=== PATIENT | female | born 1970 | race Native Hawaiian/Other Pacific Islander ===

== ENCOUNTER 2016-11-21 07:27 | Outpatient (CLI) | payer OTHER ==
[~2016-11-21 07:27] MED LIST: ALPR0.2566 PO; AMOX500C85 PO; BENZONATATE200 MG PO; CELEXA20 MG PO; CIPRO500 MG PO; CYCL10TA35 PO; LEVO0.2T35 PO; LEXAPRO20 MG PO; MELO-13 PO; OMEP20CA PO; PAMELOR25 MG OR; QC IBUPROFEN200 M1 OR
== END 2016-11-21 19:06 | disposition home or self-care (01) ==
LOC: NM 07:27
DX: I10 Essential (primary) hypertension (principal)
CPT/HCPCS: A9500

== ENCOUNTER 2016-12-13 17:11 | Outpatient (CLI) | payer OTHER | END 2016-12-13 20:16 | disposition home or self-care (01) | LOC: RAD 17:11 | DX: S70.02XA Contusion of left hip, initial encounter (principal) ==

== ENCOUNTER 2018-04-01 14:56 | Outpatient (CLI) | payer OTHER | END 2018-04-01 20:26 | disposition home or self-care (01) | LOC: RAD 14:56 | DX: J20.8 Acute bronchitis due to other specified organisms (principal) ==

== ENCOUNTER 2018-12-13 10:58 | Outpatient (CLI) | payer OTHER | END 2018-12-13 22:50 | disposition home or self-care (01) | LOC: MAMMO 10:58 | DX: Z13.820 Encounter for screening for osteoporosis (principal); Z12.31 Encounter for screening mammogram for malignant neoplasm of breast ==

== ENCOUNTER 2019-09-16 16:40 | Outpatient (CLI) | payer OTHER | END 2019-09-16 19:04 | disposition home or self-care (01) | LOC: RAD 16:40 | DX: M54.17 Radiculopathy, lumbosacral region (principal) ==

== ENCOUNTER 2020-01-23 10:42 | Outpatient (CLI) | payer OTHER | END 2020-01-23 20:13 | disposition home or self-care (01) | LOC: MAMMO 10:42 | DX: Z12.31 Encounter for screening mammogram for malignant neoplasm of breast (principal) ==

== ENCOUNTER 2020-04-08 15:02 | Outpatient (CLI) | payer OTHER | END 2020-04-08 19:00 | disposition home or self-care (01) | LOC: LABW 15:02 → RAD 15:02 | DX: R07.9 Chest pain, unspecified (principal); S29.019A Strain of muscle and tendon of unspecified wall of thorax, initial encounter | CPT/HCPCS: 84484 ==

== ENCOUNTER 2020-11-16 11:42 | Outpatient (CLI) | payer OTHER ==
[~2020-11-16] VITALS: Ht 160 cm; Wt 117.9 kg
[2020-11-16 13:41] LABS: PLATELET COUNT 491 K/uL (152-353)
[2020-11-16 13:57] LABS: POTASSIUM 3.3 mmol/L (3.6-5.2)
== END 2020-11-16 15:43 | disposition home or self-care (01) ==
LOC: INF 11:42
PROVIDERS: ATTEND Family Medicine
DX: U07.1 COVID-19 (principal)
CPT/HCPCS: 80053; 82728; 85027; 85379; 86140; 96360; 96361

== ENCOUNTER → 2020-12-22 12:39 | Outpatient (CLI) | payer OTHER | END | disposition home or self-care (01) | LOC: RAD 12-20 13:00 | PROVIDERS: ATTEND Nurse Practitioner Family | DX: Z13.820 Encounter for screening for osteoporosis (principal); N95.8 Other specified menopausal and perimenopausal disorders ==

== ENCOUNTER 2022-01-26 07:41 | Outpatient (CLI) | payer OTHER | END 2022-01-26 20:37 | disposition home or self-care (01) | LOC: CT 07:41 | PROVIDERS: ATTEND Nurse Practitioner Family | DX: K42.9 Umbilical hernia without obstruction or gangrene (principal) | CPT/HCPCS: Q9963 ==

== ENCOUNTER 2022-01-30 09:21 | Outpatient (CLI) | payer OTHER | END 2022-01-30 19:04 | disposition home or self-care (01) | LOC: US 09:21 | PROVIDERS: ATTEND Nurse Practitioner Family | DX: Z30.431 Encounter for routine checking of intrauterine contraceptive device (principal) ==

== ENCOUNTER 2022-06-01 17:06 | Outpatient (CLI) | payer OTHER | END 2022-06-01 19:07 | disposition home or self-care (01) | LOC: RAD 17:06 | PROVIDERS: ATTEND Nurse Practitioner Family | DX: M25.551 Pain in right hip (principal) ==

== ENCOUNTER 2023-04-04 09:56 | Outpatient (CLI) | payer OTHER | END 2023-04-04 19:01 | disposition home or self-care (01) | LOC: MAMMO 09:56 | PROVIDERS: ATTEND Nurse Practitioner Family | DX: Z12.31 Encounter for screening mammogram for malignant neoplasm of breast (principal) ==

== ENCOUNTER 2023-08-17 08:38 | Outpatient (CLI) | payer OTHER | END 2023-08-17 18:57 | disposition home or self-care (01) | LOC: RAD 08:38 | PROVIDERS: ATTEND Physician Assistant | DX: M54.16 Radiculopathy, lumbar region (principal) ==